=== PATIENT | female | born 1955 | race African-American/Black ===

== ENCOUNTER → 2018-10-05 | Outpatient (CLI) | payer OTHER ==
[~2018-10-05] MED LIST: CELEXA10 MG PO; LEVOTHYROXINE 0.1 MG PO; SPIRIVA; SYMBICORT160 MCG/4.; XOPENEX0.31 MG/3
--- NOTE | ~2018-10-05 | PFR/MVV ---
[facility] [place] [address] PULMONARY FUNCTION MVV/REPORT Name: TOMY NEWMAN Room #: [facility]#: [id number] ������������������ Admission: 10/05/18 ������������������ Attend Phys: Physician not on staff Discharge: ������������������ Date of : 53 Report #: [id number] THIS REPORT FOR: //name// COPIES FOR: AGE:������ 63 SEX/RACE:� F/B >> SPIROMETRY: (BTPS) Height: 56 in cm Weight: 112 lbs kg Exam Date: 10/05/18 PRE-RX POST-RX PRED BEST %PRED BEST %PRED %CHG FVC LITERS . 2.03 . 1.40 . 69 . 1.56 . 77 . 12 FEV1 LITERS . 1.68 . 0.36 . 21 . 0.39 . 23 . 7 FEV1/FVC % . 85 . 26 . 30 . 25 . 29 . -4 CUO80-81% L/Sec . 1.88 . 0.13 . 7 . 0.13 . 7 . 0 PEF L/SEC . 4.63 . 1.47 . 32 . 0.84 . 18 . -43 FEF50/FIF50 UNITLESS . <1.00 . . . . . MVV L/Min . . . f 1/Min . . . >> LUNG VOLUMES: (BTPS) PRE-RX POST-RX PRED AVG %PRED AVG %PRED %CHG VC Liters . . . . . . TLC Liters . . . . . . RV Liters . . . . . . RV/TLC % . . . . . . FRC PL Liters . . . . . . FRC N2 Liters . . . . . . ERV Liters . . . . . . IC Liters . . . . . . >> DIFFUSION: DLCO ml/Min/mmHg . . . . . . DL Matthew ml/Min/mmHg . . . . . . DLCO/VA ml/Min/mmHg . . . . . . VA Liters . . . . . . [facility] [employer] [place] [address] PULMONARY FUNCTION MVV/REPORT Name: TOMY NEWMAN Room #: [facility]#: [id number] ������������������ Admission: 10/05/18 ������������������ Attend Phys: Physician not on staff Discharge: ������������������ Date of : 53 Report #: [id number] COMMENTS: COMMENTS: >> RESISTANCE: PRE-RX PRED AVG %PRED Raw Total cmH20/L/Sec . . . Raw Insp cmH20/L/Sec . . . Raw Exp cmH20/L/Sec . . . Raw cmH20/L/Sec . . . Gaw L/Sec/cmH20 . . . sRaw cmH20 Sec . . . sGaw l/cmH20 Sec . . . Vtq Liters . . . # = OUTSIDE 95% CONFIDENCE INTERVAL CALIBRATION: PRED: 3.00 ACTUAL: EXP 3.01 INSP 3.02 [facility] [place] [address] N-[id number] >> INTERPRETATION/IMPRESSION: CC: Zamzam Retana Physician staff SPIROMETRY: SPIROMETRY: FEV1 is 0.36 liters (21%). FVC is 1.40 liters (69%), FEV1/FVC ratio is 26%. Post-bronchodilator therapy with significant change, FVC increased to 1.56 liters (77%-12% change). IMPRESSION: Spirometry is consistent with very severe obstructive airflow defect with a significant response to bronchodilator therapy. Restrictive process cannot be evaluated by spirometry alone. Please correlate clinically. Full PFTs may be indicated. ��������������������������������������������� ���������������������������������������� By: ��������������������������������������������� Chivo Espinosa MD /nt
== END ==
LOC: PUL 10:35
DX: J44.9 Chronic obstructive pulmonary disease, unspecified (principal)